=== PATIENT | male | born 1940 | race Caucasian/White ===

== ENCOUNTER 2018-02-13 20:16 | Emergency (ER) | payer OTHER ==
[2018-02-13] MEDS ORDERED: MORPHINE 4 MG/ML SYR ONE ×2 (20:36→21:12)
[2018-02-13] MEDS ORDERED: ONDANSETRON 4 MG/2 ML VIAL ONE ×2 (20:36→21:12)
[2018-02-13] MEDS ORDERED: NA CHLORIDE 0.9% 1,000 ML ONE (20:36)
[2018-02-13 20:49] LABS: Urine Blood TRACE (NEG); Urine Glucose NEGATIVE (NEG); Urine Protein NEGATIVE (NEG); Urine Specific Gravity >1.030 (1.005-1.030); Urine pH 5.5 (5.0-7.0)
[2018-02-13 20:58] LABS: Urine Bacteria <20 /HPF (NONE SEEN); Urine Culture Reflex Order REFLEXED; Urine RBC <5 /HPF (NONE SEEN)
[2018-02-13 20:59] LABS: Absolute Monocytes 0.8 K/uL (0.1-1.3); Absolute Neutrophil 6.2 K/uL (1.8-8.0); Basophils % 0.3 % (0-1.3); Eosinophils % 1.7 % (0-4.4); Hematocrit 45.4 % (39.6-49.0); Lymphocytes % 22.1 % (15.3-44.8); MCH 32.6 pg (27.0-35.0); MCV 92.4 fL (80-100); MPV 9.1 fL (7.6-11.3); Monocytes % 8.5 % (3.3-12.3); RBC Red Blood Cell Count 4.92 M/uL (4.33-5.43)
--- NOTE | 2018-02-13 21:14 | RAD REPORT ---
EXAM DESCRIPTION: CT - Stone Protocol - 02/13/2018 8:55 pm CLINICAL HISTORY: Abdominal pain, history of colon cancer COMPARISON: CT imaging January 2011 TECHNIQUE: Axial [address] imaging of the abdomen and pelvis was performed without IV contrast. No IV contrast was given because of allergy, abnormal renal function, patient refusal or physician re quest. Oral contrast was given. All CT scans are performed using dose optimization technique as appropriate and may include automated exposure control or mA/KV adjustment according to patient size. FINDINGS: No suspicious findings in the lung bases. The liver, spleen and pancreas show no suspicious findings on non-contrast imaging. Multiple small ga llstones are present in the dependent portion of the gallbladder. No duct stone seen. No biliary tree dilatation. Granulomatous calcifications are present in the liver and spleen. No hydronephrosis or suspicious renal mass. Low-density masses in the kidneys are cyst that match up to the 2011 study. No significant adrenal finding. Isodense renal masses and pyelonephritis cannot be excluded in the absence of IV contrast. The urinary bladder is without significant finding. No dilated bowel loops or bowel wall thickening. No free air, free fluid or inflammatory stranding. N o mass or bulky lymphadenopathy. Fat filled left inguinal hernia is present. Disc and bony degenerative changes are present. Left hip prosthesis in place. This creates spray chuckie fact limiting pelvic floor assessment. IMPRESSION: No bowel obstruction, free air or surgically emergent finding. No acute GI process. Multiple punctate gallstones without acute gallbladder or biliary tree finding. Full assessment is limited is the absence of IV contrast.
[2018-02-13 21:38] LABS: ALT/SGPT 41 U/L (12-78); AST/SGOT 29 U/L (15-37); Albumin 4.1 g/dL (3.4-5.0); Alkaline Phosphatase 51 U/L (45-117); Amylase Level 62 U/L (25-115); BUN Blood Urea Nitrogen 18 mg/dL (7-18); Bicarbonate 26 mmol/L (21-32); Bilirubin Direct 0.1 mg/dL (0-0.2); Bilirubin Total 0.8 mg/dL (0.2-1.0); Glucose Level 120 mg/dL (74-106); Lipase 122 U/L (73-393); Potassium 3.8 mmol/L (3.5-5.1); Protein, Total 8.7 g/dL (6.4-8.2); Sodium Level 138 mmol/L (136-145); Troponin I < 0.02 ng/mL (0.0-0.045)
--- NOTE | 2018-02-14 00:30 | EDPHYS ---
Physician Documentation [facility] Name: Junior Najera Age: 77 yrs Sex: Male : 1940 Arrival Date: 02/13/2018 Time: 20:17 Bed 2 Private MD: ED Physician Edilberto Prasad HPI: 02/14 00:40 This 77 yrs old Male presents to ER via Ambulatory with complaints of Abd gs Pain > 50 y/o. 00:40 The patient presents with abdominal pain in the upper abdomen. Onset: The gs symptoms/episode began/occurred acutely, just prior to arrival, after eating. The symptoms do not radiate. Associated signs and symptoms: Pertinent negatives: nausea and vomiting, diarrhea, testicular pain. The symptoms are described as constant. Modifying factors: The symptoms are alleviated by nothing, the symptoms are aggravated by nothing. Severity of pain: At its worst the pain was severe in the emergency department the pain is unchanged. The patient has experienced similar episodes in the past, a few times, kidney stone. Historical: - Allergies: 02/13 20:20 No Known Allergies; fc - Home Meds: 20:20 None [Active]; fc - PMHx: 20:20 GERD; cancer - colon; fc - PSHx: 20:20 colon resection for cancer; left hip replacement; fc - Immunization history:: Last tetanus immunization: up to date. - Social history:: Smoking status: Patient/guardian denies using tobacco, Patient/guardian denies using alcohol. - Ebola Screening: : Patient negative for fever greater than or equal to 101.5 degrees Fahrenheit, and additional compatible Ebola Virus Disease symptoms Patient denies exposure to infectious person Patient denies travel to an Ebola-affected area in the 21 days before illness onset. ROS: 02/14 00:40 All other systems are negative. gs Exam: 00:40 Head/Face: Normocephalic, atraumatic. Eyes: Pupils equal round and reactive to light, gs extra-ocular motions intact. Lids and lashes normal. Conjunctiva and sclera are non-icteric and not injected. Cornea within normal limits. Periorbital areas with no swelling, redness, or edema. ENT: Nares patent. No nasal discharge, no septal abnormalities noted. Tympanic membranes are normal and external auditory canals are clear. Oropharynx with no redness, swelling, or masses, exudates, or evidence of obstruction, uvula midline. Mucous membranes moist. Neck: Trachea midline, no thyromegaly or masses palpated, and no cervical lymphadenopathy. Supple, full range of motion without nuchal rigidity, or vertebral point tenderness. No Meningismus. Chest/axilla: Normal chest wall appearance and motion. Nontender with no deformity. No lesions are appreciated. Cardiovascular: Regular rate and rhythm with a normal S1 and S2. No gallops, murmurs, or rubs. Normal PMI, no JVD. No pulse deficits. Respiratory: Lungs have equal breath sounds bilaterally, clear to auscultation and percussion. No rales, rhonchi or wheezes noted. No increased work of breathing, no retractions or nasal flaring. Back: No spinal tenderness. No costovertebral tenderness. Full range of motion. Skin: Warm, dry with normal turgor. Normal color with no rashes, no lesions, and no evidence of cellulitis. MS/ Extremity: Pulses equal, no cyanosis. Neurovascular intact. Full, normal range of motion. Neuro: Awake and alert, GCS 15, oriented to person, place, time, and situation. Cranial nerves II-XII grossly intact. Motor strength 5/5 in all extremities. Sensory grossly intact. Cerebellar exam normal. Normal gait. 00:40 Constitutional: The patient appears alert, awake. 00:40 Constitutional: The patient appears uncomfortable. 00:40 ECG was reviewed by the Attending Physician. 00:40 Abdomen/GI: Palpation: moderate abdominal tenderness, in the epigastric area and right upper quadrant. Vital Signs: 02/13 20:05 BP 160 / 99; Pulse 89; Resp 24; Temp 97.6(O); Pulse Ox 100% on R/A; Weight 90.72 kg fc (R); Height 5 ft. 10 in. (177.80 cm) (R); Pain 10/10; 20:46 BP 104 / 85; Pulse 84; Resp 21; Pulse Ox 97% on R/A; aj 22:01 BP 154 / 90; Pulse 92; Resp 17; Pulse Ox 97% on R/A; aj 02/14 00:32 BP 152 / 92; Pulse 90; Resp 18; Temp 98.; Pulse Ox 97% on R/A; Pain 0/10; ak1 02/13 20:05 Body Mass Index 28.70 (90.72 kg, 177.80 cm) fc MDM: 02/13 20:29 Patient medically screened. 02/14 00:40 Differential diagnosis: bowel obstruction, cholecystitis, pancreatitis, gs Ureterolithiasis. Data reviewed: vital signs, nurses notes, lab test result(s), EKG, radiologic studies. Counseling: I had a detailed discussion with the patient and/or guardian regarding: the historical points, exam findings, and any diagnostic results supporting the discharge/admit diagnosis, lab results, radiology results, the need for outpatient follow up. Response to treatment: the patient's symptoms have resolved after treatment, and as a result, I will discharge patient. 02/13 20:18 Order name: Amylase, Serum; Complete Time: 23: 02/13 20:18 Order name: Basic Metabolic Panel; Complete Time: : 02/13 20:18 Order name: CBC with Diff; Complete Time: 21: 02/13 20:18 Order name: Creatinine for Radiology; Complete Time: 21: 02/13 20:18 Order name: Hepatic Function; Complete Time: : 02/13 20:18 Order name: Lipase; Complete Time: 23: 02/13 20:18 Order name: Urine Microscopic Only; Complete Time: 21: 02/13 20:18 Order name: Troponin I; Complete Time: : 02/13 20:29 Order name: CT Stone Protocol; Complete Time: 21:20 02/13 20:41 Order name: Urine Dipstick--Ancillary (enter results); Complete Time: 21:20 ct 02/13 21:00 Order name: Urine Culture [facility] 02/13 21:24 Order name: US Abdomen Limited 02/13 20:18 Order name: IV Saline Lock; Complete Time: 20:35 02/13 20:18 Order name: Labs collected and sent; Complete Time: 20:35 02/13 20:18 Order name: Urine Dipstick-Ancillary (obtain specimen); Complete Time: 20:35 02/13 20:18 Order name: EKG - Nurse/Tech; Complete Time: 20:35 EC:40 Rate is 90 beats/min. Rhythm is regular. WI interval is normal. QRS interval is gs prolonged. T waves are Normal. No ST changes noted. Clinical impression: Abnormal EKG without significant change. Interpreted by me. Administered Medications: 02/13 20:34 Drug: morphine 4 mg Route: IVP; Site: right antecubital; aj : Follow up: Response: Pain is decreased aj Drug: Zofran 4 mg Route: IVP; Site: right antecubital; aj : Follow up: Response: No change in condition Drug: NS 0.9% 1000 ml Route: IV; Rate: 1 bolus; Site: right antecubital; aj 02/14 00:47 Follow up: IV Status: Completed infusion ak1 02/13 21: Drug: morphine 4 mg Route: IVP; Site: right antecubital; aj 22:30 Follow up: Response: No adverse reaction ak1 : Drug: Zofran 4 mg Route: IVP; Site: right antecubital; aj :30 Follow up: Response: No adverse reaction ak1 Disposition: 02/14/18 00:29 Discharged to Home. Impression: Colic - Biliary. - Condition is Stable. - Discharge Instructions: Biliary Colic, Adult. - Medication Reconciliation Form, Thank You Letter, Antibiotic Education, Prescription Opioid Use form. - Follow up: Elias Govea MD; When: 2 - 3 days; Reason: Re-evaluation by your physician. Signatures: Dispatcher [employer] Genny Escobar RN RN aj Chretien, Felicia RN Fernanda Gillette RN RN [email or web address] Edilberto Prasad MD MD Corrections: (The following items were deleted from the chart) 02/14 00:48 00:29 02/14/2018 00:29 Discharged to Home. Impression: Colic - Biliary. Condition is ak1 Stable. Forms are Medication Reconciliation Form, Thank You Letter, Antibiotic Education, Prescription Opioid Use. Follow up: Elias Govea; When: 2 - 3 days; Reason: Re-evaluation by your physician. gs
--- NOTE | 2018-02-14 00:30 | ER ---
Nurse's Notes [facility] Name: Junior Najera Age: 77 yrs Sex: Male : 1940 Arrival Date: 02/13/2018 Time: 20:17 Bed 2 Private MD: Diagnosis: Colic-Biliary Presentation: 02/13 20:05 Presenting complaint: Patient states: that he is having severe abd pain, nausea and fc vomiting. States that he ate [employer] 1 hrs prior to all of this starting and thinks he has food poisoning. Transition of care: patient was not received from another setting of care. Onset of symptoms was February 13, 2018 at 19:30. Risk Assessment: Do you want to hurt yourself or someone else? Patient reports no desire to harm self or others. Initial Sepsis Screen: Does the patient meet any 2 criteria? RR > 20 per min. Yes Does the patient have a suspected source of infection? No. Patient's initial sepsis screen is negative. Care prior to arrival: None. 20:05 Method Of Arrival: Ambulatory fc 20:05 Acuity: KIRSTY 3 fc Historical: - Allergies: 20:20 No Known Allergies; fc - Home Meds: 20:20 None [Active]; fc - PMHx: 20:20 GERD; cancer - colon; fc - PSHx: 20:20 colon resection for cancer; left hip replacement; fc - Immunization history:: Last tetanus immunization: up to date. - Social history:: Smoking status: Patient/guardian denies using tobacco, Patient/guardian denies using alcohol. - Ebola Screening: : Patient negative for fever greater than or equal to 101.5 degrees Fahrenheit, and additional compatible Ebola Virus Disease symptoms Patient denies exposure to infectious person Patient denies travel to an Ebola-affected area in the 21 days before illness onset. Screenin:19 Abuse screen: Denies threats or abuse. Nutritional screening: No deficits noted. fc Tuberculosis screening: No symptoms or risk factors identified. Fall Risk None identified. Assessment: 20:29 General: Appears in no apparent distress. uncomfortable, well groomed, well developed, ao Behavior is cooperative, anxious. Pain: Complains of pain in abdomen and back pain. Neuro: Level of Consciousness is awake, alert, obeys commands, Oriented to person, place, time, situation, Appropriate for age Moves all extremities. Full function Gait is steady, Speech is normal, Facial symmetry appears normal. Cardiovascular: Reports None. Respiratory: Airway is patent Respiratory effort is even, unlabored, Respiratory pattern is regular, symmetrical. GI: Bowel sounds present X 4 quads. Abd is soft and non tender X 4 quads. GI: Reports lower abdominal pain, upper abdominal pain, nausea. : No signs and/or symptoms were reported regarding the genitourinary system. EENT: No signs and/or symptoms were reported regarding the EENT system. Derm: Skin is intact, Skin is pink, warm \T\ dry. normal, Skin temperature is warm. Musculoskeletal: Circulation, motion, and sensation intact. 20:46 General: Appears in no apparent distress. uncomfortable, Behavior is cooperative, aj anxious. Pain: Complains of pain in abdomen. Neuro: Level of Consciousness is awake, alert, obeys commands, Oriented to person, place, time, situation, Appropriate for age Moves all extremities. Full function. Cardiovascular: Denies chest pain. Respiratory: Airway is patent Respiratory effort is even, unlabored, Respiratory pattern is regular, symmetrical. GI: Abdomen is round distended, Bowel sounds present X 4 quads. Abdomen is tender to palpation X 4 quads. Reports lower abdominal pain, upper abdominal pain, nausea, vomiting. Derm: Skin is intact, is healthy with good turgor, Skin is pink, warm \T\ dry. normal. 22:30 Reassessment: Patient appears in no apparent distress at this time. pt resting with ak1 eyes closed, resp even and unlabored. family at bedside. will continue to monitor. Patient states symptoms have improved. 02/14 00:31 Reassessment: Patient appears in no apparent distress at this time. No changes from ak1 previously documented assessment. Patient states feeling better. Patient states symptoms have improved. Vital Signs: 02/13 20:05 BP 160 / 99; Pulse 89; Resp 24; Temp 97.6(O); Pulse Ox 100% on R/A; Weight 90.72 kg fc (R); Height 5 ft. 10 in. (177.80 cm) (R); Pain 10/10; 20:46 BP 104 / 85; Pulse 84; Resp 21; Pulse Ox 97% on R/A; aj 22:01 BP 154 / 90; Pulse 92; Resp 17; Pulse Ox 97% on R/A; aj 0917 00:32 BP 152 / 92; Pulse 90; Resp 18; Temp 98.; Pulse Ox 97% on R/A; Pain 0/10; ak1 02/13 20:05 Body Mass Index 28.70 (90.72 kg, 177.80 cm) ED Course: 02/13 20:05 Arm band placed on Patient placed in an exam room, on a stretcher. fc 20:17 Patient arrived in ED. aj 20:17 Inserted saline lock: 18 gauge in right antecubital area, using aseptic technique. aj Blood collected. 20:18 Triage completed. fc 20:19 Patient has correct armband on for positive identification. Bed in low position. Call light in reach. 20:19 x ray inspector on. Pulse ox on. NIBP on. aj 20:21 Edilberto Prasad MD is Attending Physician. gs 20:23 Zev Gaytan, DONALDO is Primary Nurse. ao 20:54 CT completed. Patient moved to CT via stretcher. Patient moved back from CT. cw1 20:55 CT Stone Protocol In Process Unspecified. EDMS 22:20 Ultrasound completed. Patient tolerated well. sg3 22:27 US Abdomen Limited In Process Unspecified. EDMS 02/14 00:28 Elias Govea MD is Referral Physician. gs 00:32 No provider procedures requiring assistance completed. ak1 00:48 IV discontinued, intact, bleeding controlled, No redness/swelling at site. Pressure ak1 dressing applied. Administered Medications: 02/13 20:34 Drug: morphine 4 mg Route: IVP; Site: right antecubital; aj 21:10 Follow up: Response: Pain is decreased aj :34 Drug: Zofran 4 mg Route: IVP; Site: right antecubital; aj 21:10 Follow up: Response: No change in condition aj : Drug: NS 0.9% 1000 ml Route: IV; Rate: 1 bolus; Site: right antecubital; aj 02/14 00:47 Follow up: IV Status: Completed infusion ak1 02/13 21:10 Drug: morphine 4 mg Route: IVP; Site: right antecubital; aj 22:30 Follow up: Response: No adverse reaction ak1 21:10 Drug: Zofran 4 mg Route: IVP; Site: right antecubital; aj 22:30 Follow up: Response: No adverse reaction ak1 Outcome: 02/14 00:29 Discharge ordered by . heladio 00:48 Discharged to home via wheelchair, with family. ak1 00:48 Condition: improved 00:48 Discharge instructions given to patient, family, Instructed on discharge instructions, follow up and referral plans. Demonstrated understanding of instructions, follow-up care. 00:48 Patient left the ED. ak1 Signatures: Dispatcher [employer] Genny Escobar RN Stefanie Butler RN RN fc Woodley, Crystal 1 Fernanda Correa RN RN ak1 Zev Gaytan RN RN ao Starr, Gregory, MD MD gs Godinez, Sarah 3
--- NOTE | 2018-02-14 07:00 | RAD REPORT ---
EXAM DESCRIPTION: US - Abdomen Exam Limited - 02/13/2018 10:28 pm CLINICAL HISTORY: Abdominal pain A preliminary report was provided at the time of the study and reviewed prior to final report. COMPARISON: CT study February 13 FINDINGS: Small amount of sludge is scattered within the lumen of the gallbladder. The Multiple smal l gallstones are collecting in the dependent portion near the neck. Additional sludge is present in t he lumen. Common bile duct is normal with no common duct stone identified. No gallbladder wall thicke venice or pericholecystic fluid. IMPRESSION: Multi stone cholelithiasis matching the CT findings. No other gallbladder or biliary tree finding.
--- NOTE | 2018-02-14 19:26 | EKG ---
Test Date: 2018-02-13 Test Time: 20:23:08 Size Mixer: RIKI MEASUREMENT RESULTS: Intervals: Rate: 90 WV: 148 QRSD: 142 QT: 428 QTc: 523 [place]: P: 70 WV: 148 QRS: 60 T: 45 INTERPRETIVE STATEMENTS: Normal sinus rhythm Right bundle branch block Abnormal ECG Compared to ECG 01/30/2011 05:40:12 No significant changes Electronically Signed On 02-14-18 19:24:25 CDT by Aneesh Montelongo
== END 2018-02-14 00:48 | disposition home or self-care (01) ==
LOC: ER 20:16
DX: K80.50 Calculus of bile duct without cholangitis or cholecystitis without obstruction (principal); Z85.038 Personal history of other malignant neoplasm of large intestine
CPT/HCPCS: 36415; 74176; 76377; 76705; 80048; 80076; 81003; 81015; 82150; 83690; 84484; 85025; 87086; 87088; 93005; 96361; 96374; 96375; 99285; J2405; J7030

== ENCOUNTER 2023-11-07 21:39 | Emergency (ER) | payer OTHER ==
--- OUTSIDE RECORDS SUMMARY | 2023-11-07 21:43 | XMS REPORT | Continuity of Care Document ---
Author Name Unknown Address [address] [facility] [address] [place] [address] [facility] Address [address] [facility]. [address] [place] [address] Care Team Providers Care Commercial Leasing Agent Name Role Phone [place], [facility] Primary Car e Physician ERIBERTO PURVIS Attending Clinician Unavailjeimy panda Doctor Unassigned, [place] Attending Clinician U Eriberto Felder MD Attending Clinician [phone] Jorge Seth Attending Clinician [phone] Only, Adc Test Attending Clinician Unavailable Murtaza_P Attending Clinician Unavailable ERIBERTO PURVIS Admitting Clinician Eriberto Phelps MD Admitting Clinician [phone] Murtaza_Criss Admitting Clinician Unavailable Payers Payer Name Policy Type Policy Number Effective Date Expirati on Date Source [employer] [id number] 2020 00:00:00 [id number] [facility] [id number] Problems Condition Name Condition Details Condition Category Status Onset Date Resolution Date Last Treatment Date Treating Clinician Comments Source Piriformis syndrome of right side Piriformis syndrome of right side Disease Active 12-10 00:00: 00 Overview: Formattin g of this note might be different from the original. Added automatic ally from request for surgery [id number] [facility] No known active problems No known active problems Disease [facility] Allergies, Adverse Reactions, Alerts Allergy Name Allergy Type Status Severity Reaction(s) Onset Date Inactive Date Treating Clinician Comments Source NO KNOWN ALLERGIE S Drug Class Active [facility] Social History Social Habit Start Date Stop Date Quantity Comments Source [facility] to SARS-[facility]-2 (event) 2022-07-24 00:00:00 2022-08-03 14:36:00 Not sure [facility] Alcohol intake 2022-08-03 00:00:00 2022-08-03 00:00:00 Lifetime non-drinker (finding) [facility] History of Social function 2022-07-15 00:00:00 2022-07-15 00:00:00 [facility] Tobacco use and exposure 2020-12-05 00:00:00 2020-12-05 00:00:00 Smokeless tobacco non-user [facility] Sex Assigned At 1940 00:00:00 1940 00:00:00 [facility] Smoking Status Start Date Stop Date Source Never smoked tobacco [facility] Medications Ordered Medication Name Filled Medication Name Start Date Stop Date Current Medication? Ordering Clinician Indication Dosage Frequency Signature (SIG) Comments Components Source methylPREDN ISolone (MEDROL, CHRISTI,) 4 mg tablets 07-15 00:00: 00 Yes Take by mouth SEE-INSTRU CTIONS. follow package directions [facility] triamcinolo ne acetonide (KENALOG) injection 12-16 19:23: 00 Yes PRN, Starting Wed12/16/20 at 1423, Until Discontinu ed, Routine, Intra-op [facility] bupivacaine (preserv free) 0.5% (SENSORCAIN E MPF) 0.5 % (5 mg/mL) injection 12-16 19:23: 00 Yes PRN, Starting Wed12/16/20 at 1423, Until Discontinu ed, Routine, Intra-op [facility] lactated ringers IV infusion 1,000 mL 12-16 17:00: 00 12-16 17:14 :00 No 1000mL at 42 mL/hr, 1,000 mL, IV Infusion, ONCE, 1 dose, Wed12/16/20 at 1200, Routine, DSU Pre-op [facility] albuterol 90 mcg/actuati on inhaler 06-18 00:00: 00 Yes INHALE 2 PUFFS BY MOUTH EVERY 6 HOURS NEEDED FOR SHORTNESS OF BREATH OR WHEEZING [facility] ibuprofen 400 mg tablet 06-18 00:00: 00 Yes TAKE ONE TABLET BY MOUTH EVERY 8 HOURS NEEDED FOR MILD PAIN AND INFLAMMATI ON. TAKE WITH FOOD.*DO NOT CRUSH* [facility] omeprazole 20 mg capsule 06-18 00:00: 00 Yes TAKE 1 CAPSULE BY MOUTH DAILY FOR STOMACH. *DO NOT CRUSH* [facility] Immunizations Ordered Immunization Name Filled Immunization Name Date Status Comments Source Zoster Vaccine Recombinant 2020-08-19 00:00:00 Completed [facility] Zoster Vaccine Recombinant 2020-08-19 00:00:00 Completed [facility] Zoster Vaccine Recombinant 2020-08-19 00:00:00 Completed [facility] Zoster Vaccine Recombinant 2020-08-19 00:00:00 Completed [facility] Zoster Vaccine Recombinant 2020-08-19 00:00:00 Completed [facility] Zoster Vaccine Recombinant 2020-08-19 00:00:00 Completed [facility] Zoster Vaccine Recombinant 2020-08-19 00:00:00 Completed [facility] Zoster Vaccine Recombinant 2020-08-19 00:00:00 Completed [facility] Zoster Vaccine Recombinant 2020-08-19 00:00:00 Completed [facility] Zoster Vaccine Recombinant 2020-08-19 00:00:00 Completed [facility] Zoster Vaccine Recombinant 2020-08-19 00:00:00 Completed [facility] Zoster Vaccine Recombinant 2020-08-19 00:00:00 Completed [facility] Zoster Vaccine Recombinant 2020-08-19 00:00:00 Completed [facility] Zoster Vaccine Recombinant 2020-08-19 00:00:00 Completed [facility] Zoster Vaccine Recombinant 2020-08-19 00:00:00 Completed [facility] Zoster Vaccine Recombinant 2020-08-19 00:00:00 Completed [facility] Zoster Vaccine Recombinant 2020-08-19 00:00:00 Completed [facility] Zoster Vaccine Recombinant 2020-08-19 00:00:00 Completed [facility] Zoster Vaccine Recombinant 2020-08-19 00:00:00 Completed [facility] SARS-COV-2 COVID-19 PFIZER VACCINE 2020-07-22 00:00:00 Completed [facility] SARS-COV-2 COVID-19 PFIZER VACCINE 2020-07-22 00:00:00 Completed [facility] SARS-COV-2 COVID-19 PFIZER VACCINE 2020-07-22 00:00:00 Completed [facility] SARS-COV-2 COVID-19 PFIZER VACCINE 2020-07-22 00:00:00 Completed [facility] SARS-COV-2 COVID-19 PFIZER VACCINE 2020-07-22 00:00:00 Completed [facility] SARS-COV-2 COVID-19 PFIZER VACCINE 2020-07-22 00:00:00 Completed [facility] SARS-COV-2 COVID-19 PFIZER VACCINE 2020-07-22 00:00:00 Completed [facility] SARS-COV-2 COVID-19 PFIZER VACCINE 2020-07-22 00:00:00 Completed [facility] SARS-COV-2 COVID-19 PFIZER VACCINE 2020-07-22 00:00:00 Completed [facility] SARS-COV-2 COVID-19 PFIZER VACCINE 2020-07-22 00:00:00 Completed [facility] SARS-COV-2 COVID-19 PFIZER VACCINE 2020-07-22 00:00:00 Completed [facility] SARS-COV-2 COVID-19 PFIZER VACCINE 2020-07-22 00:00:00 Completed [facility] SARS-COV-2 COVID-19 PFIZER VACCINE 2020-07-22 00:00:00 Completed [facility] SARS-COV-2 COVID-19 PFIZER VACCINE 2020-07-22 00:00:00 Completed [facility] SARS-COV-2 COVID-19 PFIZER VACCINE 2020-07-22 00:00:00 Completed [facility] SARS-COV-2 COVID-19 PFIZER VACCINE 2020-07-22 00:00:00 Completed [facility] SARS-COV-2 COVID-19 PFIZER VACCINE 2020-07-22 00:00:00 Completed [facility] SARS-COV-2 COVID-19 PFIZER VACCINE 2020-07-22 00:00:00 Completed [facility] SARS-COV-2 COVID-19 PFIZER VACCINE 2020-07-22 00:00:00 Completed [facility] Influenza Virus Vaccine 2020-02-29 00:00:00 Completed [facility] Influenza Virus Vaccine 2020-02-29 00:00:00 Completed [facility] Influenza Virus Vaccine 2020-02-29 00:00:00 Completed [facility] Influenza Virus Vaccine 2020-02-29 00:00:00 Completed [facility] Influenza Virus Vaccine 2020-02-29 00:00:00 Completed [facility] Influenza Virus Vaccine 2020-02-29 00:00:00 Completed [facility] Influenza Virus Vaccine 2020-02-29 00:00:00 Completed [facility] Influenza Virus Vaccine 2020-02-29 00:00:00 Completed [facility] Influenza Virus Vaccine 2020-02-29 00:00:00 Completed [facility] Influenza Virus Vaccine 2020-02-29 00:00:00 Completed [facility] Influenza Virus Vaccine 2020-02-29 00:00:00 Completed [facility] Influenza Virus Vaccine 2020-02-29 00:00:00 Completed [facility] Influenza Virus Vaccine 2020-02-29 00:00:00 Completed [facility] Influenza Virus Vaccine 2020-02-29 00:00:00 Completed [facility] Influenza Virus Vaccine 2020-02-29 00:00:00 Completed [facility] Influenza Virus Vaccine 2020-02-29 00:00:00 Completed [facility] Influenza Virus Vaccine 2020-02-29 00:00:00 Completed [facility] Influenza Virus Vaccine 2020-02-29 00:00:00 Completed [facility] Influenza Virus Vaccine 2020-02-29 00:00:00 Completed [facility] Influenza Virus Vaccine 2019-02-21 00:00:00 Completed [facility] Influenza Virus Vaccine 2019-02-21 00:00:00 Completed [facility] Influenza Virus Vaccine 2019-02-21 00:00:00 Completed [facility] Influenza Virus Vaccine 2019-02-21 00:00:00 Completed [facility] Influenza Virus Vaccine 2019-02-21 00:00:00 Completed [facility] Influenza Virus Vaccine 2019-02-21 00:00:00 Completed [facility] Influenza Virus Vaccine 2019-02-21 00:00:00 Completed [facility] Influenza Virus Vaccine 2019-02-21 00:00:00 Completed [facility] Influenza Virus Vaccine 2019-02-21 00:00:00 Completed [facility] Influenza Virus Vaccine 2019-02-21 00:00:00 Completed [facility] Influenza Virus Vaccine 2019-02-21 00:00:00 Completed [facility] Influenza Virus Vaccine 2019-02-21 00:00:00 Completed [facility] Influenza Virus Vaccine 2019-02-21 00:00:00 Completed [facility] Influenza Virus Vaccine 2019-02-21 00:00:00 Completed [facility] Influenza Virus Vaccine 2019-02-21 00:00:00 Completed [facility] Influenza Virus Vaccine 2019-02-21 00:00:00 Completed [facility] Influenza Virus Vaccine 2019-02-21 00:00:00 Completed [facility] Influenza Virus Vaccine 2019-02-21 00:00:00 Completed [facility] Influenza Virus Vaccine 2019-02-21 00:00:00 Completed [facility] TDAP 2017-10-12 00:00:00 Completed [facility] TDAP 2017-10-12 00:00:00 Completed [facility] TDAP 2017-10-12 00:00:00 Completed [facility] TDAP 2017-10-12 00:00:00 Completed [facility] TDAP 2017-10-12 00:00:00 Completed [facility] TDAP 2017-10-12 00:00:00 Completed [facility] TDAP 2017-10-12 00:00:00 Completed [facility] TDAP 2017-10-12 00:00:00 Completed [facility] TDAP 2017-10-12 00:00:00 Completed [facility] TDAP 2017-10-12 00:00:00 Completed [facility] TDAP 2017-10-12 00:00:00 Completed [facility] TDAP 2017-10-12 00:00:00 Completed [facility] TDAP 2017-10-12 00:00:00 Completed [facility] TDAP 2017-10-12 00:00:00 Completed [facility] TDAP 2017-10-12 00:00:00 Completed [facility] TDAP 2017-10-12 00:00:00 Completed [facility] TDAP 2017-10-12 00:00:00 Completed [facility] TDAP 2017-10-12 00:00:00 Completed [facility] TDAP 2017-10-12 00:00:00 Completed [facility] Influenza High Dose 2017-04-14 00:00:00 Completed [facility] Pneumococcal 13 Conjugate, PCV13 (Prevnar 13) 2017-04-14 00:00:00 Completed [facility] Influenza High Dose 2017-04-14 00:00:00 Completed [facility] Pneumococcal 13 Conjugate, PCV13 (Prevnar 13) 2017-04-14 00:00:00 Completed [facility] Influenza High Dose 2017-04-14 00:00:00 Completed [facility] Pneumococcal 13 Conjugate, PCV13 (Prevnar 13) 2017-04-14 00:00:00 Completed [facility] Influenza High Dose 2017-04-14 00:00:00 Completed [facility] Pneumococcal 13 Conjugate, PCV13 (Prevnar 13) 2017-04-14 00:00:00 Completed [facility] Influenza High Dose 2017-04-14 00:00:00 Completed [facility] Pneumococcal 13 Conjugate, PCV13 (Prevnar 13) 2017-04-14 00:00:00 Completed [facility] Influenza High Dose 2017-04-14 00:00:00 Completed [facility] Pneumococcal 13 Conjugate, PCV13 (Prevnar 13) 2017-04-14 00:00:00 Completed [facility] Influenza High Dose 2017-04-14 00:00:00 Completed [facility] Pneumococcal 13 Conjugate, PCV13 (Prevnar 13) 2017-04-14 00:00:00 Completed [facility] Influenza High Dose 2017-04-14 00:00:00 Completed [facility] Pneumococcal 13 Conjugate, PCV13 (Prevnar 13) 2017-04-14 00:00:00 Completed [facility] Influenza High Dose 2017-04-14 00:00:00 Completed [facility] Pneumococcal 13 Conjugate, PCV13 (Prevnar 13) 2017-04-14 00:00:00 Completed [facility] Influenza High Dose 2017-04-14 00:00:00 Completed [facility] Pneumococcal 13 Conjugate, PCV13 (Prevnar 13) 2017-04-14 00:00:00 Completed [facility] Influenza High Dose 2017-04-14 00:00:00 Completed [facility] Pneumococcal 13 Conjugate, PCV13 (Prevnar 13) 2017-04-14 00:00:00 Completed [facility] Influenza High Dose 2017-04-14 00:00:00 Completed [facility] Pneumococcal 13 Conjugate, PCV13 (Prevnar 13) 2017-04-14 00:00:00 Completed [facility] Influenza High Dose 2017-04-14 00:00:00 Completed [facility] Pneumococcal 13 Conjugate, PCV13 (Prevnar 13) 2017-04-14 00:00:00 Completed [facility] Influenza High Dose 2017-04-14 00:00:00 Completed [facility] Pneumococcal 13 Conjugate, PCV13 (Prevnar 13) 2017-04-14 00:00:00 Completed [facility] Influenza High Dose 2017-04-14 00:00:00 Completed [facility] Pneumococcal 13 Conjugate, PCV13 (Prevnar 13) 2017-04-14 00:00:00 Completed [facility] Influenza High Dose 2017-04-14 00:00:00 Completed [facility] Pneumococcal 13 Conjugate, PCV13 (Prevnar 13) 2017-04-14 00:00:00 Completed [facility] Influenza High Dose 2017-04-14 00:00:00 Completed [facility] Pneumococcal 13 Conjugate, PCV13 (Prevnar 13) 2017-04-14 00:00:00 Completed [facility] Influenza High Dose 2017-04-14 00:00:00 Completed [facility] Pneumococcal 13 Conjugate, PCV13 (Prevnar 13) 2017-04-14 00:00:00 Completed [facility] Influenza High Dose 2017-04-14 00:00:00 Completed [facility] Pneumococcal 13 Conjugate, PCV13 (Prevnar 13) 2017-04-14 00:00:00 Completed [facility] Zoster(Zostavax)([facility]) 2013-09-22 00:00:00 Completed [facility] Zoster(Zostavax)([facility]) 2013-09-22 00:00:00 Completed [facility] Zoster(Zostavax)([facility]) 2013-09-22 00:00:00 Completed [facility] Zoster(Zostavax)([facility]) 2013-09-22 00:00:00 Completed [facility] Zoster(Zostavax)([facility]) 2013-09-22 00:00:00 Completed [facility] Zoster(Zostavax)([facility]) 2013-09-22 00:00:00 Completed [facility] Zoster(Zostavax)([facility]) 2013-09-22 00:00:00 Completed [facility] Zoster(Zostavax)([facility]) 2013-09-22 00:00:00 Completed [facility] Zoster(Zostavax)([facility]) 2013-09-22 00:00:00 Completed [facility] Zoster(Zostavax)([facility]) 2013-09-22 00:00:00 Completed [facility] Zoster(Zostavax)([facility]) 2013-09-22 00:00:00 Completed [facility] Zoster(Zostavax)([facility]) 2013-09-22 00:00:00 Completed [facility] Zoster(Zostavax)([facility]) 2013-09-22 00:00:00 Completed [facility] Zoster(Zostavax)([facility]) 2013-09-22 00:00:00 Completed [facility] Zoster(Zostavax)([facility]) 2013-09-22 00:00:00 Completed [facility] Zoster(Zostavax)([facility]) 2013-09-22 00:00:00 Completed [facility] Zoster(Zostavax)([facility]) 2013-09-22 00:00:00 Completed [facility] 2013-09-22 00:00:00 Completed [facility] Zoster(Zostavax)( aron) 2013-09-22 00:00:00 Completed [facility] Influenza Virus Vaccine 2012-05-06 00:00:00 Completed [facility] Influenza Virus Vaccine 2012-05-06 00:00:00 Completed [facility] Influenza Virus Vaccine 2012-05-06 00:00:00 Completed [facility] Influenza Virus Vaccine 2012-05-06 00:00:00 Completed [facility] Influenza Virus Vaccine 2012-05-06 00:00:00 Completed [facility] Influenza Virus Vaccine 2012-05-06 00:00:00 Completed [facility] Influenza Virus Vaccine 2012-05-06 00:00:00 Completed [facility] Influenza Virus Vaccine 2012-05-06 00:00:00 Completed [facility] Influenza Virus Vaccine 2012-05-06 00:00:00 Completed [facility] Influenza Virus Vaccine 2012-05-06 00:00:00 Completed [facility] Influenza Virus Vaccine 2012-05-06 00:00:00 Completed [facility] Influenza Virus Vaccine 2012-05-06 00:00:00 Completed [facility] Influenza Virus Vaccine 2012-05-06 00:00:00 Completed [facility] Influenza Virus Vaccine 2012-05-06 00:00:00 Completed [facility] Influenza Virus Vaccine 2012-05-06 00:00:00 Completed [facility] Influenza Virus Vaccine 2012-05-06 00:00:00 Completed [facility] Influenza Virus Vaccine 2012-05-06 00:00:00 Completed [facility] Influenza Virus Vaccine 2012-05-06 00:00:00 Completed [facility] Influenza Virus Vaccine 2012-05-06 00:00:00 Completed [facility] Pneumococcal 13 Conjugate, PCV13 (Prevnar 13) 2011-03-11 00:00:00 Completed [facility] Pneumococcal 13 Conjugate, PCV13 (Prevnar 13) 2011-03-11 00:00:00 Completed [facility] Pneumococcal 13 Conjugate, PCV13 (Prevnar 13) 2011-03-11 00:00:00 Completed [facility] Pneumococcal 13 Conjugate, PCV13 (Prevnar 13) 2011-03-11 00:00:00 Completed [facility] Pneumococcal 13 Conjugate, PCV13 (Prevnar 13) 2011-03-11 00:00:00 Completed [facility] Pneumococcal 13 Conjugate, PCV13 (Prevnar 13) 2011-03-11 00:00:00 Completed [facility] Pneumococcal 13 Conjugate, PCV13 (Prevnar 13) 2011-03-11 00:00:00 Completed [facility] Pneumococcal 13 Conjugate, PCV13 (Prevnar 13) 2011-03-11 00:00:00 Completed [facility] Pneumococcal 13 Conjugate, PCV13 (Prevnar 13) 2011-03-11 00:00:00 Completed [facility] Pneumococcal 13 Conjugate, PCV13 (Prevnar 13) 2011-03-11 00:00:00 Completed [facility] Pneumococcal 13 Conjugate, PCV13 (Prevnar 13) 2011-03-11 00:00:00 Completed [facility] Pneumococcal 13 Conjugate, PCV13 (Prevnar 13) 2011-03-11 00:00:00 Completed [facility] Pneumococcal 13 Conjugate, PCV13 (Prevnar 13) 2011-03-11 00:00:00 Completed [facility] Pneumococcal 13 Conjugate, PCV13 (Prevnar 13) 2011-03-11 00:00:00 Completed [facility] Pneumococcal 13 Conjugate, PCV13 (Prevnar 13) 2011-03-11 00:00:00 Completed [facility] Pneumococcal 13 Conjugate, PCV13 (Prevnar 13) 2011-03-11 00:00:00 Completed [facility] Pneumococcal 13 Conjugate, PCV13 (Prevnar 13) 2011-03-11 00:00:00 Completed [facility] Pneumococcal 13 Conjugate, PCV13 (Prevnar 13) 2011-03-11 00:00:00 Completed [facility] Pneumococcal 13 Conjugate, PCV13 (Prevnar 13) 2011-03-11 00:00:00 Completed [facility] Tetanus/Diptheria 2005-06-17 00:00:00 Completed [facility] Tetanus/Diptheria 2005-06-17 00:00:00 Completed [facility] Tetanus/Diptheria 2005-06-17 00:00:00 Completed [facility] Tetanus/Diptheria 2005-06-17 00:00:00 Completed [facility] Tetanus/Diptheria 2005-06-17 00:00:00 Completed [facility] Tetanus/Diptheria 2005-06-17 00:00:00 Completed [facility] Tetanus/Diptheria 2005-06-17 00:00:00 Completed [facility] Tetanus/Diptheria 2005-06-17 00:00:00 Completed [facility] Tetanus/Diptheria 2005-06-17 00:00:00 Completed [facility] Tetanus/Diptheria 2005-06-17 00:00:00 Completed [facility] Tetanus/Diptheria 2005-06-17 00:00:00 Completed [facility] Tetanus/Diptheria 2005-06-17 00:00:00 Completed [facility] Tetanus/Diptheria 2005-06-17 00:00:00 Completed [facility] Tetanus/Diptheria 2005-06-17 00:00:00 Completed [facility] Tetanus/Diptheria 2005-06-17 00:00:00 Completed [facility] Tetanus/Diptheria 2005-06-17 00:00:00 Completed [facility] Tetanus/Diptheria 2005-06-17 00:00:00 Completed [facility] Tetanus/Diptheria 2005-06-17 00:00:00 Completed [facility] Tetanus/Diptheria 2005-06-17 00:00:00 Completed [facility] SARS-COV-2 COVID-19 PFIZER VACCINE Unknown Completed [facility] Influenza Virus Vaccine Unknown Completed [facility] Pneumococcal 13 Conjugate, PCV13 (Prevnar 13) Unknown Completed [facility] Influenza Virus Vaccine Unknown Completed [facility] Influenza High Dose Unknown Completed [facility] Influenza Virus Vaccine Unknown Completed [facility] Pneumococcal 13 Conjugate, PCV13 (Prevnar 13) Unknown Completed [facility] Tetanus/Diptheria Unknown Completed [facility] TDAP Unknown Completed [facility] Zoster(Zostavax)(Sh ingles) Unknown Completed [facility] Zoster Vaccine Recombinant Unknown Completed [facility] Vital Signs Vital Name Observation Time Observation Value Comments S ource Body height 2022-08-03 20:46:00 177.8 cm [facility] Body weight 2022-08-03 20:46:00 90.719 kg [facility] BMI 2022-08-03 20:46:00 28.70 kg/m2 [facility] Body height 2022-07-15 20:05:00 177[facility]8 [facility] 2022-07-15 20:05:00 90.719 kg [facility] 2022-07-15 20:05:00 28.70 kg/m2 [facility] Systolic blood pressure 2020-12-16 19:50:00 126 mm[Hg] [facility] Diastolic blood pressure 2020-12-16 19:50:00 80 mm[Hg] [facility] Heart rate 2020-12-16 19:50:00 72 /min [facility] Oxygen saturation in Arterial blood by Pulse oximetry 2020-12-16 19:50:00 98 /min [facility] Body temperature 2020-12-16 17:10:00 36.83 Monie [facility] Respiratory rate 2020-12-16 17:10:00 16 /min [facility] Body height 2020-12-13 13:15:00 177.8 cm [facility] Body weight 2020-12-13 13:15:00 94.348 kg [facility] BMI 2020-12-13 13:15:00 29.84 kg/m2 [facility] Systolic blood pressure 2020-12-16 19:50:00 126 mm[Hg] [facility] Diastolic blood pressure 2020-12-16 19:50:00 80 mm[Hg] [facility] Heart rate 2020-12-16 19:50:00 72 /[facility] in Arterial blood by Pulse oximetry 2020-12-16 19:50:00 98 /min [facility] Body temperature 2020-12-16 17:10:00 36.83 Monie [facility] Respiratory rate 2020-12-16 17:10:00 16 /min [facility] Body height 2020-12-13 13:15:00 177.8 cm [facility] Body weight 2020-12-13 13:15:00 94.348 kg [facility] BMI 2020-12-13 13:15:00 29.84 kg/m2 [facility] Systolic blood pressure 2020-12-05 13:50:00 148 mm[Hg] [facility] Diastolic blood pressure 2020-12-05 13:50:00 75 mm[Hg] [place] o [facility] Heart rate 2020-12-05 13:50:00 82 /min [facility] Body height 2020-12-05 13:47:00 170.2 cm [facility] Body weight 2020-12-05 13:47:00 92.534 kg [facility] BMI 2020-12-05 13:47:00 31.95 kg/m2 [facility] BP Diastolic 2019-07-13 00:00:00 112 mm[Hg] [facility] Height 2019-07-13 00:00:00 70 [in_i] [facility] BMI (Body Mass Index) 2019-07-13 00:00:00 30.6 kg/m2 [facility] BP Systolic 2019-07-13 00:00:00 154 mm[Hg] [facility] Body Weight 2019-07-13 00:00:00 213.2 [lb_av] [facility] Procedures Procedure Date / Time Performed Performing Clinician Source AUTHORIZATION FOR RELEASE OF PHI 2022-08-14 05:01:00 Doctor Unassigned, [place] [facility] MR LUMBAR SPINE WO CONTRAST 2022-07-29 19:37:09 Eriberto Purvis [facility] PATIENT FINANCIAL POLICY 2022-07-29 18:19:01 Doctor Unassigned, [place] [facility] ASSIGNMENT OF BENEFITS 2022-07-15 19:14:52 Docto r Unassigned, [place] [facility] REFERRAL- REQUEST/RESPONSE 2022-07-03 06:01:00 Aidan rao Unassigned, [place] [facility] [place] TIME OR (NON-REPORTABLE) 2020-12-16 19:40:09 Eriberto Purvis [facility] FL TIME OR (NON-REPORTABLE) 2020-12-16 19:40:09 Eriberto Purvis [facility] MAJOR JOINT INJECTION 2020-12-16 19:14:00 Manuel Purvis [facility] MAJOR JOINT INJECTION 2020-12-16 19:14:00 Manuel Purvis [facility] DAY SURGERY - ADC 2020-12-16 05:01:00 Doctor Lori ssigned, [place] [facility] XR CHEST 2 VW 2020-12-13 16:50:36 [facility] 2020-12-13 16:38:00 [facility]OLIC PANEL (NA, K, CL, CO2, GLUCOSE, BUN, CREATININE, CA) 2020-12-13 16:36:00 Eriberto Purvis [facility] CBC WITH DIFF 2020-12-13 16:36:00 Eriberto Purvis Un [facility] CONSENT/REFUSAL FOR DIAGNOSIS AND TREATMENT 2020-12-13 16:15:21 Doctor Unassigned, [place] [facility] CONSENT/REFUSAL FOR DIAGNOSIS AND TREATMENT 2020-12-13 16:15:21 Doctor Unassigned, [place] [facility] ASSIGNMENT OF BENEFITS 2020-12-13 16:15:08 Docto r Unassigned, [place] [facility] ASSIGNMENT OF BENEFITS 2020-12-13 16:15:08 Docto r Unassigned, [place] [facility] PATIENT FINANCIAL POLICY 2020-12-13 16:14:52 Doctor Unassigned, [place] [facility] PATIENT FINANCIAL POLICY 2020-12-13 16:14:52 Doctor Unassigned, [place] [facility] NO SHOW OR MISSED APPOINTMENT POLICY ACKNOWLEDGEMENT 2020-12-13 16:14:34 Doctor Unassigned, [place] [facility] NO SHOW OR MISSED APPOINTMENT POLICY ACKNOWLEDGEMENT 2020-12-13 16:14:34 Doctor Unassigned, [place] [facility] NOTICE OF PRIVACY PRACTICES 2020-12-13 16:14:21 Doctor Unassigned, [place] [facility] NOTICE OF PRIVACY PRACTICES 2020-12-13 16:14:21 Doctor Unassigned, [place] [facility] CONSENT/REFUSAL FOR DIAGNOSIS AND TREATMENT 2020-12-13 16:14:07 Doctor Unassigned, [place] [facility] CONSENT/REFUSAL FOR DIAGNOSIS AND TREATMENT 2020-12-13 16:14:07 Doctor Unassigned, [place] [facility] ASSIGNMENT OF BENEFITS 2020-12-13 16:13:52 Docto r Unassigned, [place] [facility] ASSIGNMENT OF BENEFITS 2020-12-13 16:13:52 Docto r Unassigned, [place] [facility] XR HIPS 2 VW RIGHT 2020-12-05 15:34:37 Jorge Manzo [facility] TYMPANOMETRY 2019-07-13 00:00:00 [facility] Chole[facility] Total Replacement of Hip [facility] Plan of Care Planned Activity Planned Date Details Comments Source Instructions [facility] Encounters Start Date/Time End Date/Time Encounter Type Admission Type Attending Clinicians Care Facility Care Department Encounter ID Source 2021-03-31 07:57:38 Outpatient R ERIBERTO PURVIS [facility] [id number] [facility] 2022-08-14 00:00:00 2022-08-14 00:00:00 Orders Only Doctor Unassigned, [place] [facility] 1..840.114 350.1.13.10 4.2.7.2.686 [id number] [facility] 2022-08-12 00:00:00 2022-08-12 00:00:00 Telephone Eriberto Purvis [facility] 1..840.114 350.1.13.10 4.2.7.2.686 [id number] [facility] 2022-08-06 00:00:00 2022-08-06 00:00:00 Telephone Jorge Manzo [facility] 1.0114 350.1.13.10 4.2.7.2.686 [id number] [facility] 2022-08-03 14:45:00 2022-08-03 15:20:12 Outpatient R ERIBERTO PURVIS [facility] [id number] [facility] 2022-08-03 14:45:00 2022-08-03 15:20:12 Office Visit Eriberto Purvis [facility] 1.0114 350.1.13.10 4.2.7.2.686 [id number] [facility] 2022-07-29 12:19:46 2022-07-29 23:59:00 Outpatient R ERIBERTO PURVIS [facility] [id number] [facility] 2022-07-29 12:19:46 2022-07-29 23:59:00 Hospital Encounter Eriberto Purvis [facility] 1.0.114 350.1.13.10 4.2.7.2.686 [id number] [facility] 2022-07-29 00:00:00 2022-07-29 00:00:00 Orders Only Doctor Unassigned, [place] [facility] 1.840.114 350.1.13.10 4.2.7.2.686 [id number] [facility] 2022-07-15 13:45:00 2022-07-15 14:21:47 Outpatient R ERIBERTO PURVIS [facility] [id number] [facility] 2022-07-15 13:45:00 2022-07-15 14:21:47 Office Visit Eriberto Purvis [facility] 1.0114 350.1.13.10 4.2.7.2.686 [id number] [facility] 2022-07-15 00:00:00 2022-07-15 00:00:00 Orders Only Doctor Unassigned, [place] [facility] 1.2.840.114 350.1.13.10 4.2.7.2.686 [id number] [facility] 2022-07-14 00:00:00 2022-07-14 00:00:00 Telephone Eriberto Purvis [facility] 1.2840.114 350.1.13.10 4.2.7.2.686 [id number] [facility] 2022-07-10 00:00:00 2022-07-10 00:00:00 Telephone Eriberto Purvis [facility] 1.2840.114 350.1.13.10 4.2.7.2.686 [id number] [facility] 2022-07-03 00:00:00 2022-07-03 00:00:00 Orders Only Doctor Unassigned, [place] [facility] 1.2.840.114 350.1.13.10 4.2.7.2.686 [id number] [facility] 2022-06-30 00:00:00 2022-06-30 00:00:00 Telephone Eriberto Purvis [facility] 1.2840.114 350.1.13.10 4.2.7.2.686 [id number] [facility] 2020-12-16 14:55:00 2020-12-16 15:14:00 Surgery PurvisEriberto miner [facility] 1.2.840.114 350.1.13.10 4.2.7.2.686 [id number] [facility] 2020-12-16 11:44:00 2020-12-16 14:58:00 Hospital Encounter Eriberto Purvis [facility] 1.2.840.114 350.1.13.10 4.2.7.2.686 [id number] [facility] 2020-12-16 00:00:00 2020-12-16 00:00:00 Orders Only Doctor Unassigned, [place] [facility] 1.2.840.114 350.1.13.10 4.2.7.2.686 [id number] [facility] 2020-12-13 11:20:09 2020-12-13 11:35:09 Laboratory Only Only, Adc Test Eriberto Purvis [facility] 1.2.840.114 350.1.13.10 4.2.7.2.686 [id number] [facility] 2020-12-13 11:20:51 2020-12-13 11:20:51 Hospital Encounter Eriberto Purvis [facility] 1.2.840.114 350.1.13.10 4.2.7.2.686 [id number] [facility] 2020-12-13 11:15:00 2020-12-13 11:15:00 Outpatient R ERIBERTO PURVIS [facility] [id number] [facility] 2020-12-06 00:00:00 2020-12-06 00:00:00 Prep For Surgery Eriberto Purvis [facility] [place] 1.2.840.114 350.1.13.10 4.2.7.2.686 [id number] [facility] 2020-12-05 08:25:00 2020-12-05 23:59:00 Hospital Encounter Jorge Manzo [facility] [place] 1.2.840.114 350.1.13.10 4.2.7.2.686 [id number] [facility] 2020-12-05 08:35:24 2020-12-05 09:40:13 Office Visit Eriberto Purvis [facility] [place] 1.2.840.114 350.1.13.10 4.2.7.2.686 [id number] [facility] 2020-12-05 09:00:00 2020-12-05 09:00:00 Outpatient R ERIBERTO PURVIS [facility] [id number] [facility] 2020-04-17 02:36:00 2020-04-17 02:36:00 Outpatient Raju_P [facility] [id number] [facility] 2019-07-17 03:50:00 2019-07-17 03:50:00 Outpatient Raju_P [facility] [id number] [facility] 2019-07-13 02:42:00 2019-07-13 02:42:00 Outpatient Raju_P [facility] [id number] [facility] 2019-07-13 00:00:00 2019-07-13 00:00:00 David Hauser MD: [address] [place] [address], [address], [place] [address] , Ph. [facility] [place] - Otolaryngol y-[facility] [id number] [facility] 2019-06-14 09:08:00 2019-06-14 09:08:00 Outpatient Raju_P [facility] [id number] [facility] 2019-06-12 12:02:00 2019-06-12 12:02:00 Outpatient Raju_P [facility] [id number] [facility] 2019-06-07 11:36:00 2019-06-07 11:36:00 Outpatient Raju_P [facility] [id number] [facility] Results Test Description Test Time Test Comments Results Resul t Comments Source [place] TIME OR (NON-REPORTABLE) 2020-12-16 19:41:22 These images do not require a Radiology diagnostic report. [facility] [place] TIME OR (NON-REPORTABLE) 2020-12-16 19:41:22 These images do not require a Radiology diagnostic report. [facility] (NA, K, CL, CO2, GLUCOSE, BUN, CREATININE, CA)2020-12-13 17:57:52* Test Item Value Reference Range Interpretation Comme nts NA (test code = 4573750107) 137 mmol/L 135-145 K (test code = 2607379717) 4.4 mmol/L 3.5-5.0 CL (test code = 4800401609) 105 mmol/L 98-108 CO2 TOTAL (test code = 2682361771) 24 mmol/L 23-31 AGAP (test code = 9508530791) 2-16 BUN (test code = 7361808994) 13 mg/dL 7-23 GLUCOSE (test code = 7643135780) 93 mg/dL 70-110 CREATININE (test code = 5726017772) 0.82 mg/dL 0.60-1.25 CALCIUM (test code = 6048336607) 9.4 mg/dL 8.6-10.6 eGFR (test code = 7754382288) mL/min/1.73m2 АЛЕКСАНДР (test code = АЛЕКСАНДР) Association of Glomerular Filtration Rate (GFR) and Staging of Kidney Disease* + + +- +| GFR (mL/min/1.73 m2) ?| With Kidney Damage ?| ?Without Kidney Damage+ ------+ ----+ ------+| ?>90 ?| ?Stage one ?| ? Normal ?+ -+ + -+| ?60-89 ?| ?Stage two ?| ? Decreased GFR ? + + +- +| ?30-59 ?| ?Stage three ?| ? Stage three ? + + +- +| ?15-29 ?| ?Stage four ? | ? Stage four ?+ -+ + -+| ?<15 (or dialysis) ? ?| ?Stage five ? | ? Stage five ?+ -+ + -+ *Each stage assumes the associated GFR level has been in effect for at least three months. ?Stages 1 to 5, with or without kidney disease, indicate chronic kidney disease. Notes: Determination of stages one and two (with eGFR >59mL/min/1.73 m2) requires estimation of kidney damage for at least three months as defined by structural or functional abnormalities of the kidney, manifested by either:Pathological abnormalities or Markers of kidney damage (including abnormalities in the composition of the blood or urine or abnormalities in imaging tests). [facility] WITH [id number] 17:56:15* Test Item Value Reference Range Interpretation Comme nts WBC (test code = 6690-2) See_Comment [Automated [employer]] The system which generated this result transmitted reference range: 4.20 - 10.70 10*3/?L. The reference range was not used to interpret this result as normal/abnormal. RBC (test code = 789-8) See_Comment [[employer]] The system which generated this result transmitted reference range: 4.26 - 5.52 10*6/?L. The reference range was not used to interpret this result as normal/abnormal. HGB (test code = 718-7) 14.3 g/dL 12.2-16.4 HCT (test code = 4544-3) 43.1 % 38.4-49.3 MCV (test code = 787-2) 95.4 fL 81.7-95.6 MCH (test code = 785-6) 31.6 pg 26.1-32.7 MCHC (test code = 786-4) 33.2 g/dL 31.2-35.0 RDW-SD (test code = 84113-9) 43.6 fL 38.5-51.6 RDW-CV (test code = 788-0) 12.2 % 12.1-15.4 PLT (test code = 777-3) See_Comment L [Automated [employer]] The system which generated this result transmitted reference range: 150 - 328 10*3/?L. The reference range was not used to interpret this result as normal/abnormal. MPV (test code = 51796-3) 10.4 fL 9.8-13.0 IPF % (test code = 0517252154) 3.5 % 1.2-10.7 Platelet count measured by fluorescence method. NRBC/100 WBC (test code = 3610219399) See_Comment [Automated [employer] ssage] The system which generated this result transmitted reference range: 0.0 - 10.0 /100 WBCs. The reference range was not used to interpret this result as normal/abnormal. NRBC x10^3 (test code = 9372059659) <0.01 See_Comment [Automated messa ge] The system which generated this result transmitted reference range: 10*3/?L. The reference range was not used to interpret this result as normal/abnormal. GRAN MAT (NEUT) % (test code = 770-8) 45.7 % IMM GRAN % (test code = 2028806966) 0.30 % LYMPH % (test code = 736-9) 37.4 % MONO % (test code = 5905-5) 11.4 % EOS % (test code = 713-8) 4.7 % BASO % (test code = 706-2) 0.5 % GRAN MAT x10^3(ANC) (test code = 7880148249) 2.61 10*3/uL 1.99-6.95 IMM GRAN x10^3 (test code = 3228249282) <0.03 0.00-0.06 LYMPH x10^3 (test code = 731-0) 2.14 10*3/uL 1.09-3.23 MONO x10^3 (test code = 742-7) 0.65 10*3/uL 0.36-1.02 EOS x10^3 (test code = 711-2) 0.27 10*3/uL 0.06-0.53 BASO x10^3 (test code = 704-7) 0.03 10*3/uL 0.01-0.09 Lab Interpretation (test code = 49124-3) Abnormal [facility] WITH [id number] 17:56:15* Test Item Value Reference Range Interpretation Comme nts WBC (test code = 6690-2) See_Comment [Automated messa ge] The system which generated this result transmitted reference range: 4.20 - 10.70 10*3/?L. The reference range was not used to interpret this result as normal/abnormal. RBC (test code = 789-8) See_Comment [Automated [employer] ge] The system which generated this result transmitted reference range: 4.26 - 5.52 10*6/?L. The reference range was not used to interpret this result as normal/abnormal. HGB (test code = 718-7) 14.3 g/dL 12.2-16.4 HCT (test code = 4544-3) 43.1 % 38.4-49.3 MCV (test code = 787-2) 95.4 fL 81.7-95.6 MCH (test code = 785-6) 31.6 pg 26.1-32.7 MCHC (test code = 786-4) 33.2 g/dL 31.2-35.0 RDW-SD (test code = 25640-3) 43.6 fL 38.5-51.6 RDW-CV (test code = 788-0) 12.2 % 12.1-15.4 PLT (test code = 777-3) See_Comment L [Automated [employer] ge] The system which generated this result transmitted reference range: 150 - 328 10*3/?L. The reference range was not used to interpret this result as normal/abnormal. MPV (test code = 59911-3) 10.4 fL 9.8-13.0 IPF % (test code = 6440762419) 3.5 % 1.2-10.7 Platelet count measured by fluorescence method. NRBC/100 WBC (test code = 9826919896) See_Comment [Automated [employer] ssage] The system which generated this result transmitted reference range: 0.0 - 10.0 /100 WBCs. The reference range was not used to interpret this result as normal/abnormal. NRBC x10^3 (test code = 6858454457) <0.01 See_Comment [Automated [employer] ge] The system which generated this result transmitted reference range: 10*3/?L. The reference range was not used to interpret this result as normal/abnormal. GRAN MAT (NEUT) % (test code = 770-8) 45.7 % IMM GRAN % (test code = 7766664411) 0.30 % LYMPH % (test code = 736-9) 37.4 % MONO % (test code = 5905-5) 11.4 % EOS % (test code = 713-8) 4.7 % BASO % (test code = 706-2) 0.5 % GRAN MAT x10^3(ANC) (test code = 3294495413) 2.61 10*3/uL 1.99-6.95 IMM GRAN x10^3 (test code = 0070043177) <0.03 0.00-0.06 LYMPH x10^3 (test code = 731-0) 2.14 10*3/uL 1.09-3.23 MONO x10^3 (test code = 742-7) 0.65 10*3/uL 0.36-1.02 EOS x10^3 (test code = 711-2) 0.27 10*3/uL 0.06-0.53 BASO x10^3 (test code = 704-7) 0.03 10*3/uL 0.01-0.09 Lab Interpretation (test code = 38455-5) [id number] 17:31:13Mild pulmonary hyperexpansion without acute infiltrates.PROCEDURE: PA and lateral chest x-ray INDICATION: Prior hip surgery. Rule out pulmonary disease. Lungs are slightly hyperexpanded but clear of acute infiltrates. Heart andmediastinum unremarkable. Degenerative changes present in the spinediffusely. [facility], Radiant Results Inft User - 12/13/2020 12:49 PM CDT PROCEDURE: PA and lateral chest x-rayINDICATION: Prior hip surgery. Rule outpulmonary disease.Lungs are slightly hyperexpanded but clear of acute infiltrates. Heart andmediastinum unremarkable. Degenerative changes present in the spinediffusely.IMPRESSIONMild pulmonary hyperexpansion without acute infiltrates.[facility] 17:05:39* Test Item Value Reference Range Interpretation Comme nts APPEARANCE (test code = 9009312399) Clear Clear COLOR (test code = 2535168602) Yellow Yellow PH (test code = 8116971412) 4.8-8.0 SP GRAVITY (test code = 4078072328) 1.003-1.030 GLU U QUAL (test code = 3784481161) Normal Normal BLOOD (test code = 9568172018) 1+ Negative A KETONES (test code = 4208188320) Negative Negative PROTEIN (test code = 2887-8) Negative Negative UROBILIN (test code = 8619964337) Normal Normal BILIRUBIN (test code = 3585200959) Negative Negative NITRITE (test code = 1825736651) Negative Negative LEUK MARIBEL (test code = 8773433458) Negative Negative RBC/HPF (test code = 9067319958) See_Comment [Automated [employer] ge] The system which generated this result transmitted reference range: 0 - 3 HPF. The reference range was not used to interpret this result as normal/abnormal. WBC/HPF (test code = 3988768619) See_Comment [Automated [employer] ge] The system which generated this result transmitted reference range: 0 - 5 HPF. The reference range was not used to interpret this result as normal/abnormal. BACTERIA (test code = 4131434571) Negative Negative MUCOUS (test code = 5400501486) Slight Negative LPF A Lab Interpretation (test code = 70469-8) [facility]normal [facility] 17:05:39* Test Item Value Reference Range Interpretation Comme nts APPEARANCE (test code = 7863330846) Clear Clear COLOR (test code = 2485067533) Yellow Yellow PH (test code = 4093688612) 4.8-8.0 SP GRAVITY (test code = 5763962708) 1.003-1.030 GLU U QUAL (test code = 1683195228) Normal Normal BLOOD (test code = 3481764976) 1+ Negative A KETONES (test code = 8508324050) Negative Negative PROTEIN (test code = 2887-8) Negative Negative UROBILIN (test code = 5716729339) Normal Normal BILIRUBIN (test code = 0431301932) Negative Negative NITRITE (test code = 4490072262) Negative Negative LEUK MARIBEL (test code = 0296370320) Negative Negative RBC/HPF (test code = 3904917460) See_Comment [Automated [employer] ge] The system which generated this result transmitted reference range: 0 - 3 HPF. The reference range was not used to interpret this result as normal/abnormal. WBC/HPF (test code = 2728387277) See_Comment [Automated messa ge] The system which generated this result transmitted reference range: 0 - 5 HPF. The reference range was not used to interpret this result as normal/abnormal. BACTERIA (test code = 5024177200) Negative Negative MUCOUS (test code = 6689694176) Slight Negative LPF A Lab Interpretation (test code = 56810-8) [facility] VW [id number] 16:32:58Left Implant in good position, no signs of loosening or subsidence or otherwise failure prosthesis.Interval between implants is excellent with no evidence of wear.Right [facility]2020-[facility]13 10:07:12* Test Item Value Reference Range Interpretation Comme nts Right (test code = Right) Type C Peak is on Left Left (test code = Left) Type C Peak is on Left [facility]"
[2023-11-07 22:16] LABS: Absolute Eosinophils 0.2 K/uL (0-0.5); Absolute Lymphocytes (CBC) 2.2 K/uL (0.7-4.9); Absolute Monocytes 0.9 K/uL (0.1-1.3); Absolute Neutrophil 1.8 K/uL (1.8-8.0); Basophils % 0.7 % (0-1.3); Eosinophils % 4.3 % (0-4.4); Hematocrit 44.5 % (39.6-49.0); Lymphocytes % 42.9 % (15.3-44.8); MCH 31.7 pg (27.0-35.0); MCHC 33.7 g/dL (32.0-36.0); MCV 94.1 fL (80-100); MPV 8.8 fL (7.6-11.3); Monocytes % 17.3 % (3.3-12.3); Neutrophils % 34.8 % (41.7-73.7); Nucleated Red Blood Cells % 0.2 % (0-0); Platelets 127 thou/uL (152-406); RBC Red Blood Cell Count 4.73 M/uL (4.33-5.43); Red Cell Distribution Width 13.6 % (12.1-15.2)
[2023-11-07 22:34] LABS: Albumin 3.7 g/dL (3.4-5.0); Albumin/Globulin Ratio 0.9 (1.1-1.8); Anion Gap 9.9 mEq/L (5.0-15.0); Bilirubin Direct 0.2 mg/dL (0-0.2); Bilirubin Indirect, Calculated 0.6 mg/dL (0.2-0.8); Bilirubin Total 0.8 mg/dL (0.2-1.0); Globulin 4.2 g/dL (2.3-3.5); Potassium 3.9 mEq/L (3.5-5.1); Protein, Total 7.9 g/dL (6.4-8.2); Troponin High Sensitivity 7.6 pg/mL (<58.9)
[2023-11-07] MEDS ORDERED: ASPIRIN 81 MG CHEWABLE TABLET ONE (23:53)
--- NOTE | 2023-11-08 00:04 | ER ---
Nurse's Notes [facility] Name: Junior Najera Age: 83 yrs Sex: Male : 1940 Arrival Date: 11/07/2023 Time: 21:39 Bed 4 Private MD: Diagnosis: Dyspnea, unspecified Presentation: 11/06 21:54 Chief complaint: Patient states: Increasing SOB x2-3 days. Denies CP. Coronavirus kb3 screen: Vaccine status: Patient reports receiving the 2nd dose of the covid vaccine. Client denies travel out of the [place] in the last 14 days. Ebola Screen: Patient negative for fever greater than or equal to 101.5 degrees Fahrenheit, and additional compatible Ebola Virus Disease symptoms Patient denies exposure to infectious person. Patient denies travel to an Ebola-affected area in the 21 days before illness onset. Initial Sepsis Screen: Does the patient meet any 2 criteria? No. Patient's initial sepsis screen is negative. Does the patient have a suspected source of infection? No. Patient's initial sepsis screen is negative. Risk Assessment: Do you want to hurt yourself or someone else? Patient reports no desire to harm self or others. Onset of symptoms was November 05, 2023. 21:54 Method Of Arrival: Ambulatory kb3 21:54 Acuity: KIRSTY 2 kb3 Triage Assessment: 21:55 General: Appears in no apparent distress. uncomfortable, Behavior is calm, cooperative. kb3 Pain: Denies pain. Historical: - Allergies: 21:55 No Known Allergies; kb3 - Home Meds: 21:55 None [Active]; kb3 - PMHx: 21:55 cancer - colon; GERD; kb3 - PSHx: 21:55 Appendectomy; Cholecystectomy; kb3 - Immunization history:: Adult Immunizations up to date, Client reports receiving the 2nd dose of the Covid vaccine, Last tetanus immunization: up to date Pneumococcal vaccine is up to date, Flu vaccine is up to date. - Infectious Disease History:: Denies. - Social history:: Smoking status: Patient denies any tobacco usage or history of. - Family history:: not pertinent. - Hospitalizations: : No recent hospitalization is reported. Screenin:00 [facility] ED Fall Risk Assessment (Adult) History of falling in the last 3 months, jw7 including since admission Yes- single mechanical fall (1 pt) Confusion or Disorientation No (0 pts) Intoxicated or Sedated No (0 pts) Impaired Gait No (0 pts) Mobility Assist Device Used No (0 pt) Altered Elimination No (0 pt) Score/Fall Risk Level 0 - 2 = Low Risk Oriented to surroundings, Maintained a safe environment, Educated pt \T\ family on fall prevention, incl call for assistance when getting out of bed. 22:14 Abuse screen: Denies threats or abuse. Denies injuries from another. Nutritional ha1 screening: No deficits noted. Tuberculosis screening: No symptoms or risk factors identified. Assessment: 21:45 General: Appears uncomfortable, Behavior is cooperative, anxious. Pain: Denies pain. ha1 Neuro: Level of Consciousness is awake, alert, obeys commands, Oriented to person, place, time, situation. Cardiovascular: Reports shortness of breath, Heart tones S1 S2 present Capillary refill < 3 seconds Patient's skin is warm and dry. Rhythm is sinus rhythm. Respiratory: Reports shortness of breath on exertion Airway is patent Respiratory effort is even, unlabored, Respiratory pattern is tachypnea. GI: No signs and/or symptoms were reported involving the gastrointestinal system. Abdomen is round non-distended. : No signs and/or symptoms were reported regarding the genitourinary system. Derm: Skin is pink, warm \T\ dry. Musculoskeletal: Circulation, motion, and sensation intact. Range of motion: intact in all extremities. 22:30 Reassessment: Patient appears in no apparent distress at this time. Patient and/or jw7 family updated on plan of care and expected duration. Pain level reassessed. Patient is alert, oriented x 3, equal unlabored respirations, skin warm/dry/pink. 23:30 Reassessment: Patient appears in no apparent distress at this time. Patient and/or jw7 family updated on plan of care and expected duration. Pain level reassessed. Patient is alert, oriented x 3, equal unlabored respirations, skin warm/dry/pink. 11/07 00:30 Reassessment: Patient appears in no apparent distress at this time. Patient and/or jw7 family updated on plan of care and expected duration. Pain level reassessed. Patient is alert, oriented x 3, equal unlabored respirations, skin warm/dry/pink. 01:27 Reassessment: Patient and/or family updated on plan of care and expected duration. Pain ha1 level reassessed. Patient is alert, oriented x 3, equal unlabored respirations, skin warm/dry/pink. DR. GOLDEN IN THE ROOM. Vital Signs: 11/06 21:54 BP 173 / 111; Pulse 85; Resp 24; Temp 97.8; Pulse Ox 100% ; Weight 97.52 kg; Height 5 kb3 ft. 10 in. ; Pain 0/10; 22:11 BP 138 / 76; Pulse 80; Resp 21 S; Pulse Ox 98% on R/A; ha1 23:00 BP 125 / 86; Pulse 73; Resp 25 S; Pulse Ox 96% on R/A; jw7 11/07 00:00 BP 148 / 89; Pulse 74; Resp 21 S; Pulse Ox 100% on R/A; jw7 01:00 BP 129 / 73; Pulse 69; Resp 21; Pulse Ox 97% on R/A; ha1 11/06 21:54 Body Mass Index 30.85 (97.52 kg, 177.8 cm) kb3 11/06 21:54 Pain Scale: Adult kb3 ED Course: 11/06 21:45 Patient arrived in ED. rn 21:45 Shawn Golden MD is Attending Physician. rn 21:50 EKG done, by ED staff, reviewed by Shawn Golden MD. ha1 21:55 Triage completed. kb3 21:55 Arm band placed on right wrist. Patient placed in an exam room, on a stretcher. kb3 22:00 Patient has correct armband on for positive identification. Bed in low position. Call [facility] light in reach. Side rails up X2. 22:00 IV discontinued, intact, bleeding controlled, No redness/swelling at site. Pressure ha1 dressing applied. 22:08 Basic Metabolic Panel Sent. ha1 22:08 CBC with Diff Sent. ha1 22:08 LFT's Sent. ha1 22:08 NT PRO-BNP Sent. ha1 22:08 Troponin HS Sent. ha1 22:45 XRAY Chest (1 view) In Process Unspecified. EDMS 11/07 00:03 [facility] talked to Maico in the transfer center. faxed sp clinical's to [phone]. 02:12 took patients walker home, she went home to rest and can be reached by phone. kmf Administered Medications: 00:02 Drug: Aspirin PO Chewable Tablet 324 mg PO once; 81 mg tablets x 4 Route: PO; ha1 00:30 Follow up: Response: No adverse reaction ha1 Medication: 01:28 VIS not applicable for this client. ha1 Outcome: 00:03 ER care complete, transfer ordered by . rn 04:25 Transferred by ground EMS to [facility] [place] form completed. kb3 X-rays sent w/ patient. 04:25 Condition: stable 04:25 Instructed on the need for transfer, Demonstrated understanding of instructions, follow-up care, medications, 04:25 Patient left the ED. kb3 Signatures: Dispatcher [employer] EDMS Katlin Crook Roman, MD MD rn Waits, Jodi RN RN jw7 Letty Mccauley RN RN ha1 Kary Khoury RN RN kb3 Lacey [facility]: (The following items were deleted from the chart) 00:44 11/06 22:30 Reassessment: Patient appears in no apparent distress at this time. No jw7 changes from previously documented assessment. Patient and/or family updated on plan of care and expected duration. Pain level reassessed. Patient is alert, oriented x 3, equal unlabored respirations, skin warm/dry/pink. jw7 11/07 00:44 06/09 23:30 Reassessment: Patient appears in no apparent distress at this time. No jw7 changes from previously documented assessment. Patient and/or family updated on plan of care and expected duration. Pain level reassessed. Patient is alert, oriented x 3, equal unlabored respirations, skin warm/dry/pink. jw7
--- NOTE | 2023-11-08 00:04 | EDPHYS ---
Physician Documentation [facility] Name: Junior Najera Age: 83 yrs Sex: Male : 1940 Arrival Date: 11/07/2023 Time: 21:39 Bed 4 Private MD: ED Physician Shawn Golden HPI: 11/06 22:06 This 83 yrs old Male presents to ER via Ambulatory with complaints of sob. rn 22:06 The patient has shortness of breath with light activity. Onset: The symptoms/episode rn began/occurred 1 week(s) ago. Duration: The symptoms are intermittent. The patient's shortness of breath is aggravated by exertion, light activity, walking. Associated signs and symptoms: Pertinent positives: diaphoresis, Pertinent negatives: chest pain, non-productive cough, productive cough, fever, hemoptysis, loss of consciousness. Severity of symptoms: At their worst the symptoms were moderate in the emergency department the symptoms are unchanged. The patient has experienced similar episodes in the past. Patient reports 1 week of increased dyspnea on exertion, has to rest when walking short distances. Reports has been happening for a year or 2 but has not seen a hospital medical assistant or been evaluated. Worse over the last week and more significant so told him to come in for evaluation. Does not feel sick or feverish. No chest pain. Does report last night when laying down became diaphoretic. Does report intermittent palpitations.. Historical: - Allergies: 21:55 No Known Allergies; kb3 - Home Meds: 21:55 None [Active]; kb3 - PMHx: 21:55 cancer - colon; GERD; kb3 - PSHx: 21:55 Appendectomy; Cholecystectomy; kb3 - Immunization history:: Adult Immunizations up to date, Client reports receiving the 2nd dose of the Covid vaccine, Last tetanus immunization: up to date Pneumococcal vaccine is up to date, Flu vaccine is up to date. - Infectious Disease History:: Denies. - Social history:: Smoking status: Patient denies any tobacco usage or history of. - Family history:: not pertinent. - Hospitalizations: : No recent hospitalization is reported. ROS: 22:06 Constitutional: Negative for fever, chills, and weight loss, Cardiovascular: Positive rn for palpitations, negative for chest pain Respiratory: Positive for shortness of breath and dyspnea on exertion. Negative for cough Abdomen/GI: Negative for abdominal pain, nausea, vomiting, diarrhea, and constipation, MS/Extremity: Negative for injury and deformity, Skin: Negative for injury, rash, and discoloration, Neuro: Negative for headache, weakness, numbness, tingling, and seizure, Exam: 22:06 Constitutional: This is a well developed, well nourished patient who is awake, alert, rn mild tachypnea Head/Face: Normocephalic, atraumatic. ENT: No stridor Cardiovascular: Regular rate, irregular rhythm. No pulse deficits no cyanosis. Respiratory: Mild tachypnea, no wheezing noted. No retractions Abdomen/GI: Soft, nontender MS/ Extremity: Pulses equal, no cyanosis. No peripheral edema noted Neuro: Awake and alert, GCS 15 22:12 ECG was reviewed by the Attending Physician. rn Vital Signs: 21:54 BP 173 / 111; Pulse 85; Resp 24; Temp 97.8; Pulse Ox 100% ; Weight 97.52 kg; Height 5 kb3 ft. 10 in. ; Pain 0/10; 22:11 BP 138 / 76; Pulse 80; Resp 21 S; Pulse Ox 98% on R/A; ha1 23:00 BP 125 / 86; Pulse 73; Resp 25 S; Pulse Ox 96% on R/A; jw7 06 00:00 BP 148 / 89; Pulse 74; Resp 21 S; Pulse Ox 100% on R/A; jw7 01:00 BP 129 / 73; Pulse 69; Resp 21; Pulse Ox 97% on R/A; ha1 11/06 21:54 Body Mass Index 30.85 (97.52 kg, 177.8 cm) 3 11/06 21:54 Pain Scale: Adult kb3 MDM: 11/06 21:45 Patient medically screened. rn 23:56 Differential diagnosis: Anemia Anxiety Reaction Myocardial Infarction pneumonia, rn Pneumothorax pulmonary edema, Unstable angina, chest pain equivalent, congestive heart failure, valve problem. Data reviewed: vital signs, nurses notes, lab test result(s), EKG, radiologic studies, plain films, and as a result, I will admit patient. Consideration of Admission/Observation Patient was admitted/placed on observation. Escalation of care including admission/observation considered. Counseling: I had a detailed discussion with the patient and/or guardian regarding the historical points, exam findings, and any diagnostic results supporting the discharge/admit diagnosis, lab results, radiology results, the need for further work-up and treatment in the hospital, the need to transfer to another facility. ED course: Unclear diagnosis after evaluation in ER. Recommend admission for cardiac workup including echo and stress test. Patient states [facility] and would like to be transferred as he is worried that bill will not be paid if he stays here. Transfer initiated to the [place].. 11/06 21:53 Order name: Basic Metabolic Panel; Complete Time: 22:36 rn 11/06 21:53 Order name: CBC with Diff; Complete Time: 22:36 rn 11/06 21:53 Order name: LFT's; Complete Time: 22:36 rn 11/06 21:53 Order name: NT PRO-BNP; Complete Time: 22:36 rn 11/06 21:53 Order name: Troponin HS; Complete Time: 22:36 rn 11/06 21:53 Order name: XRAY Chest (1 view) rn 11/06 21:53 Order name: EKG; Complete Time: :54 rn 11/06 21:53 Order name: Cardiac monitoring; Complete Time: 22:08 rn 11/06 21:53 Order name: EKG - Nurse/Tech; Complete Time: 22:08 rn 11/06 21:53 Order name: IV Saline Lock; Complete Time: 22:08 rn 11/06 21:53 Order name: Labs collected and sent; Complete Time: 22:08 rn / 21:53 Order name: O2 Per Protocol; Complete Time: 22:08 rn 11/06 21:53 Order name: O2 Sat Monitoring; Complete Time: 22:08 rn EC:12 Rate is 78 beats/min. Rhythm is regular. QRS [place] is Normal. MN interval is normal. QRS rn interval is prolonged at 134 msec. QT interval is normal. No Q waves. T waves are Normal. No ST changes noted. Clinical impression: NSR w/ Non-specific ST/T Changes. Interpreted by me. Reviewed by me. Administered Medications: 11/07 00:02 Drug: Aspirin PO Chewable Tablet 324 mg PO once; 81 mg tablets x 4 Route: PO; ha1 00:30 Follow up: Response: No adverse reaction ha1 Disposition Summary: 11/08/23 00:03 Transfer Ordered Notes: Transfer Location: [facility] rn Reason: Higher level of care rn Condition: Stable rn Problem: new rn Symptoms: have improved rn Accepting Physician: (11/08/23 04:25) kb3 Diagnosis - Dyspnea, unspecified rn Forms: - Medication Reconciliation Form rn - SBAR form rn Signatures: Dispatcher [employer] EDME Shawn Golden MD MD rn Ayala, Letty, RN RN ha1 Kary Khoury RN RN kb3 Corrections: (The following items were deleted from the chart) 11/06 21:54 21:54 BASIC METABOLIC PANEL+C.LAB.BRZ ordered. EDMS EDMS 21:54 21:54 CBC+H.LAB.BRZ ordered. EDMS EDMS 21:54 21:54 HEPATIC FUNCTION+C.LAB.BRZ ordered. EDMS EDMS 21:54 21:54 PROBNP+C.LAB.BRZ ordered. EDMS EDMS 21:54 21:54 Troponin High Sensitivity+C.LAB.BRZ ordered. [facility] 11/07 04:25 00:03 rn kb3
[2023-11-08 04:32] VITALS: TEMP 97.8
[2023-11-08 05:01] VITALS: BP 129/73; O2SAT 97
--- NOTE | 2023-11-08 13:24 | RAD REPORT ---
EXAM DESCRIPTION: Chest Single View CLINICAL HISTORY: 83 years Male, DYSPNEA TECHNIQUE: 1 view (Single frontal view of the chest) COMPARISON: None. FINDINGS: LINES AND TUBES: None. CARDIOVASCULAR STRUCTURES: Normal heart size. No pulmonary venous congestion. LUNGS: Bibasilar subsegmental atelectasis. Remainder of the lung parenchyma is otherwise clear. PLEURA: No layering pleural effusions. No pneumothorax. BONES: No acute osseous abnormality of the thorax. IMPRESSION: 1. Bibasilar subsegmental atelectasis. Electronically signed by: Robin Barkley MD 11/07/2023 11:26 PM CDT RP N Due to temporary technical issues with the PACS/Fluency reporting system, reports are being signed by the in house radiologist without review as a courtesy to ensure prompt reporting. The interpreting r adiologist is fully responsible for the content of the report.
--- NOTE | 2023-11-09 15:11 | EKG ---
Test Date: 2023-11-07 Test Time: 21:53:49 Chicken Cutter: JULIANA MEASUREMENT RESULTS: Intervals: Rate: 78 ME: 140 QRSD: 134 QT: 422 QTc: 481 [place]: P: 60 ME: 140 QRS: 53 T: 38 INTERPRETIVE STATEMENTS: Sinus rhythm with premature atrial complexes Right bundle branch block Abnormal ECG Compared to ECG 02/13/2018 20:23:08 Atrial premature complex(es) now present Electronically Signed On 11-09-23 15:06:55 CDT by Aashish Vela
== END 2023-11-08 04:25 ==
LOC: ER 21:39
DX: R06.00 Dyspnea, unspecified (principal)
CPT/HCPCS: 36415; 71045; 80048; 80076; 83880; 84484; 85025; 93005; 99285